=== PATIENT | male | born 1965 | race Caucasian/White ===

== ENCOUNTER 2016-07-28 02:57 | Emergency (ER) | payer OTHER, MEDICAID ==
[~2016-07-28] VITALS: Ht 167.6 cm; Wt 70.3 kg
[2016-07-28 06:50] VITALS: BP 130/72
== END 2016-07-28 07:04 | disposition home or self-care (01) ==
LOC: ER 02:59
DX: J20.9 Acute bronchitis, unspecified (principal); J45.909 Unspecified asthma, uncomplicated; J02.9 Acute pharyngitis, unspecified